=== PATIENT | female | born 1975 | race Caucasian/White ===

== ENCOUNTER 2016-04-12 05:18 | Emergency (ER) | payer OTHER ==
--- NOTE | 2016-04-12 06:15 | DIAGNOSTIC IMAGING REPORT ---
PROCEDURE: XR CHEST 2 VIEW INDICATION: FEVER TECHNIQUE: PA and lateral views. COMPARISON: None. FINDINGS: Lungs are clear. Heart and mediastinum are normal. Thorax is normal. IMPRESSION: 1. Negative chest.
--- NOTE | 2016-04-12 06:28 | ED CLINICAL REPORT ---
Clinical Report - Physicians/Mid Levels [facility] [address] [place] [address] 04/12/2016 5:21 Patient: JT PATEL Time Seen: 05:27. Arrived- By private vehicle. Historian- patient. HISTORY OF PRESENT ILLNESS Chief Complaint: COUGH, CHILLS, MUSCLE ACHES and "FLU". RUNNY NOSE. This started about 3 days ago and is still present. The illness is described as moderate. The patient has had a cough, nasal congestion, chills and muscle aches. No sputum production, difficulty breathing, chest discomfort or pain or fever. No sore throat, hoarseness, nasal discharge, sinus pressure or sinus drainage. No ear pain. Additional history - No known contact with a sick individual. Similar symptoms previously: Recent medical care: Not recently seen/assessed. REVIEW OF SYSTEMS No headache, eye discomfort, nausea, vomiting or diarrhea. No abdominal pain, hay fever, pedal edema, calf pain or difficulty with urination. No skin rash, enlarged lymph nodes or joint pain. Denies current . All systems otherwise negative, except as recorded above. PAST HISTORY Problems: no known problems. Additional Surgeries: no known surgeries. Medications: Unable to Obtain. Allergies: No Known Drug Allergy. SOCIAL HISTORY Smoker- current status unknown. Alcohol use. No drug use. ADDITIONAL NOTES The nursing notes have been reviewed. PHYSICAL EXAM Vital Signs: 04/12/2016 05:39 BP: 112/68. 04/12/2016 05:30 HR: 102. RR: 18. O2 saturation: 96%. Temp: 98.2 F. Have been reviewed. Appearance: Alert. No acute distress. Eyes: Pupils equal, round and reactive to light. Eyes normal inspection. ENT: Nose normal. Pharynx normal. Neck: Normal inspection. Neck supple. CVS: Normal heart rate and rhythm. Heart sounds normal. Pulses normal. Respiratory: No respiratory distress. Breath sounds normal. Abdomen: Soft and nontender. Back: Normal inspection. Skin: Skin warm and dry. Normal skin color. No rash. Normal skin turgor. Extremities: Extremities exhibit normal ROM. No lower extremity edema. Neuro: Oriented X 3. No motor deficit. No sensory deficit. LABS, X-RAYS, AND EKG Chest X-ray: No acute disease. Normal lung markings present. Normal heart size. Mediastinum normal. Great vessels normal. Soft tissues normal. No infiltrate. No fracture. No bony lesion present. Views: PA and lateral. Technique: good. The X-rays were independently viewed by me and interpreted contemporaneously by me. Prior films were not available for comparison. Laboratory Tests: Rapid Influenza Screen: (LEONARD: 04/12/2016 05:48) ( [id number] 04/12/2016 06:07) Final results SPECIMEN DESCRIPTION: SWAB Test Result Flag Units (Reference) RAPID INFLUENZA SCREEN CALLED TO: NA -- DATE: 04/12/16 INFLUENZA A: NEGATIVE SCREEN FOR INFLUENZA A INFLUENZA B: NEGATIVE SCREEN FOR INFLUENZA B . Pulse Oximetry: 04/12/2016 05:30 O2 saturation: 96%. (FIO2 - room air). Interpretation: normal. PROGRESS AND PROCEDURES Course of Care: PT was given Toradol, Dilaudid and Zofran for symptomatic relief. She was worked up for her symptoms with a CXR and influenza test, both of which were negative. Patient counseled in person regarding the patient's stable condition, test results, diagnosis and need for follow-up. Concerns were addressed. Old medical records reviewed. Disposition: Discharged. Condition: stable and improved. CLINICAL IMPRESSION Acute viral (presumed) rhinitis and pharyngitis. Acute mucopurulent conjunctivitis of the right eye and left eye. INSTRUCTIONS Drink plenty of fluids. (Your influenza tests and chest x-ray were negative. You most likely have one of the many flu-like viruses that are going around at this time.). Warnings: GENERAL WARNINGS: Return or contact your physician immediately if your condition worsens or changes unexpectedly, if not improving as expected, or if other problems arise. Prescription Medications: Zofran (orally disintegrating tablets) 4 mg: take 1-2 orally every 6 hours as needed for nausea. Dispense ten (10). No refill. Substitution is permissible. Gentamicin ophthalmic solution 0.3% : instill 1 drop into the affected eye every 4 hours while awake until symptoms improve. Dispense sufficient quantity. No refill. Follow-up: Follow up with your doctor in one week if not better. Understanding of the discharge instructions verbalized by patient. (Electronically signed by Tita Mendes MD 04/17/2016 15:55)
--- NOTE | 2016-04-12 06:28 | ED ORDER SUMMARY ---
..... Patient: JT PATEL OrderSheet [facility] VisitID: [id number] [address] [place] [address] 40y, F Registration Date/Time: 04/12/2016 ORDER SHEET Weight: 86.1 kg (estimated) Allergies: No Known Drug Allergy GENERAL ORDERS: Rapid Influenza Screen (Nasal Pharyngeal) (swab) Urgent (05:48 04/12/2016 Moon MONTANO) (Ack 5:51 [facility] Employment Interviewer) (5:52 [facility]ty [facility] Employment Interviewer) Chest 2V Urgent (06:04 04/12/2016 Moon MONTANO) (Ack 6:06 [facility] Employment Interviewer) (6:14 RFay) MEDICATION ORDERS: Toradol IM 60 mg (NOW) (06:04 04/12/2016 Moon MONTANO) (6:25 DBeyer R.N.) Dilaudid IM 0.5 mg (HIGH ALERT MEDICATION, NOW) (06:04 04/12/2016 Moon MONTANO) (6:25 DBeyer R.N.) Zofran ODT PO 8 mg (NOW) (06:04 04/12/2016 Moon MONTANO) (6:25 DBeyer R.N.) IV FLUIDS: ORDER SHEET NOTES: [Electronically signed by Luc Bear R.N. (06:37 04/12/2016)] [Electronically signed by Tita Mendes MD (15:55 04/17/2016)] [Electronically locked/signed by Luc Bear R.N. (06:37 04/12/2016)]
--- NOTE | 2016-04-12 06:28 | ED ORDER SUMMARY ---
..... Patient: JT PATEL OrderSheet [facility] VisitID: [id number] [address] [place] [address] 40y, F Registration Date/Time: 04/12/2016 ORDER SHEET Weight: 86.1 kg (estimated) Allergies: No Known Drug Allergy GENERAL ORDERS: Rapid Influenza Screen (Nasal Pharyngeal) (swab) Urgent (05:48 04/12/2016 Moon MONTANO) (Ack 5:51 CHagerty [facility] Motorcycle Engine Assembler) (5:52 CHagerty ER Motorcycle Engine Assembler) Chest 2V Urgent (06:04 04/12/2016 Moon MONTANO) (Ack 6:06 CH[facility]ty [facility] Motorcycle Engine Assembler) (6:14 RFay) MEDICATION ORDERS: Toradol IM 60 mg (NOW) (06:04 04/12/2016 Moon MONTANO) (6:25 DBeyer R.N.) Dilaudid IM 0.5 mg (HIGH ALERT MEDICATION, NOW) (06:04 04/12/2016 Moon MONTANO) (6:25 DBeyer R.N.) Zofran ODT PO 8 mg (NOW) (06:04 04/12/2016 Moon MONTANO) (6:25 DBeyer R.N.) IV FLUIDS: ORDER SHEET NOTES: [Electronically signed by Luc Bear R.N. (06:37 04/12/2016)] [Electronically signed by Tita Mendes MD (15:55 04/17/2016)] [Electronically locked/signed by Luc Bear R.N. (06:37 04/12/2016)]
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
--- NOTE | 2016-04-17 15:55 | ED DISCHARGE INSTRUCTIONS ---
Patient: JT PATEL General Instructions [facility] VisitID: [id number] [place] [address] 40y, F Registration Date/Time: 04/12/2016 Acute viral (presumed) rhinitis and pharyngitis. INSTRUCTIONS Drink plenty of fluids. (Your influenza tests and chest x-ray were negative. You most likely have one of the many flu-like viruses that are going around at this time.). Warnings: GENERAL WARNINGS: Return or contact your physician immediately if your condition worsens or changes unexpectedly, if not improving as expected, or if other problems arise. Prescription Medications: Zofran (orally disintegrating tablets) 4 mg: take 1-2 orally every 6 hours as needed for nausea. Dispense ten (10). No refill. Substitution is permissible. Gentamicin ophthalmic solution 0.3% : instill 1 drop into the affected eye every 4 hours while awake until symptoms improve. Dispense sufficient quantity. No refill. Follow-up: Follow up with your doctor in one week if not better. Understanding of the discharge instructions verbalized by patient. ADDITIONAL INFORMATION Viral Respiratory Illness [Adult] You have an Upper Respiratory Illness (URI) caused by a virus. This illness is contagious during the first few days. It is spread through the air by coughing and sneezing or by direct contact (touching the sick person and then touching your own eyes, nose or mouth). Most viral illnesses go away within 7-10 days with rest and simple home remedies. Sometimes, the illness may last for several weeks. Antibiotics will not kill a virus and are generally not prescribed for this condition. Home Care: 1) If symptoms are severe, rest at home for the first 2-3 days. When you resume activity, don't let yourself get too tired. 2) Avoid being exposed to cigarette smoke (yours or others). 3) Tylenol (acetaminophen) or ibuprofen (Advil, Motrin) will help fever, muscle aching and headache. (Persons under 18 with fever should not take aspirin since this may cause liver damage.) 4) Your appetite may be poor, so a light diet is fine. Avoid dehydration by drinking 6-8 glasses of fluids per day (water, soft drinks, juices, tea, soup). Extra fluids will help loosen secretions in the nose and lungs. 5) Rvvs-ykd-[id number] cold medicines will not shorten the length of time youre sick, but they may be helpful for the following symptoms: cough (Robitussin DM); sore throat (Chloraseptic lozenges or spray); nasal and sinus congestion (Actifed, Sudafed, Chlortrimeton). Follow Up with your doctor or as advised if you dont improve over the next week. Get Prompt Medical Attention if any of the following occur: -- Cough with lots of colored sputum (mucus) or blood in your sputum -- Chest pain, shortness of breath, wheezing or have trouble breathing -- Severe headache; face, neck or ear pain -- Fever over 100.4 F (38.0 C) for more than three days -- You cant swallow due to throat pain Conjunctivitis, Viral Viral Conjunctivitis (sometimes calledPink Eye) is a common infection of the eye. This infection is very contagious. Touching the infected eye then touching another person passes this infection. It can also be spread it from one eye to the other in this same way. The most common symptoms include redness, discharge from the eye, swollen eyelids, and a gritty or scratchy feeling in the eye. This condition will take about 7-10 days to go away. Antibiotic eye drops will not kill the virus but may be prescribed to prevent a secondary bacterial infection. Home Care: Apply a towel soaked in warm water to the affected eye 3-4 times a day (just before applying medicine to the eye). It is common to have mucus drainage during the night, causing the eyelids to become crusted by morning. Use a warm wet cloth to wipe this away. Be sure antibiotics are taken as directed until all the medicine is gone. You may use acetaminophen (Tylenol) or ibuprofen (Motrin, Advil) to control pain, unless another medicine was prescribed. In infants over six months of age, you may use ibuprofen (Children's Motrin) instead of Tylenol. [NOTE : If the patient has chronic liver or kidney disease or ever had a stomach ulcer or GI bleeding, talk with your doctor before using these medicines.] (Aspirin should never be used in anyone under 18 years of age who is ill with a fever. It may cause severe liver damage.) Wash your hands before and after touching the affected eye to prevent spreading the infection to your other eye and to others. The infected person should avoid sharing towels, washcloths and pillows with others since this may spread the infection. This illness is contagious during the first week, and children with this illness should be kept out of day care and school until the redness clears. Follow Up with your doctor or this facility as directed, or if there has not been improvement within five days. Get Prompt Medical Attention if any of the following occur: Worsening vision Increasing pain in the eye Increasing swelling or redness of the eyelid Redness spreading to the face around the eye Large amount of green or yellow drainage from the eye Severe itching in or around the eye Fever over 100.0F (37.8C) oral, or over 101.0F (38.3C) rectal You have been given the following additional information: Uri, Viral, No Abx (Adult) Conjunctivitis, Viral (Electronically signed by Tita Mendes MD 04/17/2016 15:55)
--- NOTE | 2016-04-17 15:55 | ED MAR SUMMARY ---
..... Medication Administration Record [facility] [address] [place] [address] Patient: JT PATEL Visit ID: [id number] 40y, F Weight: 86.1 kg Height/Length: 64 in BMI: 32.6 ALLERGIES: No Known Drug Allergy Given 06:04/12/2016 Luc Bear, RBradleyN. Medication Administered: TORADOL [IM] (KETOROLAC TROMETHAMINE), Dose: 60 mg IM. Medication Ordered: Toradol IM 60 mg (NOW). Given 06:04/12/2016 Luc Bear, R.N. Medication Administered: DILAUDID [IM] (HYDROMORPHONE HCL PF), Dose: 0.5 mg IM. Medication Ordered: Dilaudid IM 0.5 mg (HIGH ALERT MEDICATION, NOW). Given 06:04/12/2016 Luc Bear, R.N. Medication Administered: ZOFRAN ODT [PO] (ONDANSETRON), Dose: 8 mg PO. Medication Ordered: Zofran ODT PO 8 mg (NOW).
--- NOTE | 2016-04-17 15:55 | ED MED RECONCILIATION SUMMARY ---
Patient: JT PATEL Medication Reconciliation Report [facility] VisitID: [id number] [address] [place] [address] 40y, F Registration Date/Time: 04/12/2016 Weight: 86.1 kg Height/Length: 64 in. BMI: 32.6 ALLERGIES: No Known Drug Allergy The patient's Home Medications are listed below: Unable to obtain. The source(s) of the original Home Medication information: Not obtained. The following Medications were given to the patient in the Emergency Department: Zofran ODT [PO] PO 8 mg, administered: 04/12/2016 6:25:00 AM Dilaudid [IM] IM 0.5 mg, administered: 04/12/2016 6:25:00 AM Toradol [IM] IM 60 mg, administered: 04/12/2016 6:25:00 AM The following Medications were prescribed to the patient: Zofran (orally disintegrating tablets) 4 mg: take 1-2 orally every 6 hours as needed for nausea. Dispense ten (10). No refill. Substitution is permissible. -- Tita Mendes MD Gentamicin ophthalmic solution 0.3% : instill 1 drop into the affected eye every 4 hours while awake until symptoms improve. Dispense sufficient quantity. No refill. -- Tita Mendes MD
--- NOTE | 2016-04-17 15:55 | ED MAR SUMMARY ---
..... Medication Administration Record [facility] [address] [place] [address] Patient: JT PATEL Visit ID: [id number] 40y, F Weight: 86.1 kg Height/Length: 64 in BMI: 32.6 ALLERGIES: No Known Drug Allergy Given 06:04/12/2016 Lcu Bear, RBradleyN. Medication Administered: TORADOL [IM] (KETOROLAC TROMETHAMINE), Dose: 60 mg IM. Medication Ordered: Toradol IM 60 mg (NOW). Given 06:04/12/2016 uLc Bear, R.N. Medication Administered: DILAUDID [IM] (HYDROMORPHONE HCL PF), Dose: 0.5 mg IM. Medication Ordered: Dilaudid IM 0.5 mg (HIGH ALERT MEDICATION, NOW). Given 06:04/12/2016 Luc Bear, R.N. Medication Administered: ZOFRAN ODT [PO] (ONDANSETRON), Dose: 8 mg PO. Medication Ordered: Zofran ODT PO 8 mg (NOW).
--- NOTE | 2016-04-17 15:55 | ED MED RECONCILIATION SUMMARY ---
Patient: JT PATEL Medication Reconciliation Report [facility] VisitID: [id number] [address] [place] [address] 40y, F Registration Date/Time: 04/12/2016 Weight: 86.1 kg Height/Length: 64 in. BMI: 32.6 ALLERGIES: No Known Drug Allergy The patient's Home Medications are listed below: Unable to obtain. The source(s) of the original Home Medication information: Not obtained. The following Medications were given to the patient in the Emergency Department: Zofran ODT [PO] PO 8 mg, administered: 04/12/2016 6:25:00 AM Dilaudid [IM] IM 0.5 mg, administered: 04/12/2016 6:25:00 AM Toradol [IM] IM 60 mg, administered: 04/12/2016 6:25:00 AM The following Medications were prescribed to the patient: Zofran (orally disintegrating tablets) 4 mg: take 1-2 orally every 6 hours as needed for nausea. Dispense ten (10). No refill. Substitution is permissible. -- Tita Mendes MD Gentamicin ophthalmic solution 0.3% : instill 1 drop into the affected eye every 4 hours while awake until symptoms improve. Dispense sufficient quantity. No refill. -- Tita Mendes MD
== END 2016-04-12 06:32 | disposition home or self-care (01) ==
LOC: ED SRH 05:18
DX: J31.0 Chronic rhinitis (principal); B97.89 Other viral agents as the cause of diseases classified elsewhere; J02.9 Acute pharyngitis, unspecified; H10.023 Other mucopurulent conjunctivitis, bilateral
CPT/HCPCS: 91400